=== PATIENT | male | born 1975 | race African-American/Black ===

== ENCOUNTER 2017-02-01 16:12 | Emergency (ER) | payer OTHER ==
[~2017-02-01] VITALS: Ht 177.8 cm; Wt 126.0 kg
[~2017-02-01 16:12] MED LIST: CALC500 PO
[2017-02-01 16:19] VITALS: BP 120/90; PULSE 71; RESP 16; TEMP 98.3; O2SAT 97
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
--- NOTE | 2017-02-01 17:47 | RADHPO ---
EXAM DATE/TIME: 02/01/2017 17:32 [facility] COMPARISON: No previous studies available for comparison. INDICATIONS : Right lower leg pain. Patient states his left calf hurts after stepping back wrong. MEDICAL HISTORY : None. SURGICAL HISTORY : None. ENCOUNTER: Initial ACUITY: 2 days PAIN SCORE: 7/10 LOCATION: Left lower leg. FINDINGS: Two view examination of the right tibia demonstrates no evidence of fracture or dislocation. Bony mi neralization is normal. The soft tissue structures are intact. CONCLUSION: Unremarkable examination of the right tibia. Yonny Araya Jr., MD on February 01, 2017 at 17:44 Board Certified Radiologist. This report was verified electronically.
[2017-02-01] MEDS ORDERED: IBUP-232 PO (17:56)
[2017-02-01 18:09] VITALS: BP 117/78
== END 2017-02-01 18:11 | disposition home or self-care (01) ==
LOC: PHEFT 16:12
DX: M79.661 Pain in right lower leg (principal); W01.0XXA Fall on same level from slipping, tripping and stumbling without subsequent striking against object, initial encounter
CPT/HCPCS: 73590; 99283

== ENCOUNTER 2018-01-10 14:13 | Emergency (ER) | payer OTHER ==
[~2018-01-10] VITALS: Ht 177.8 cm; Wt 126.4 kg
[~2018-01-10 14:13] MED LIST changes: -CALC500 PO; +IBUP-232 PO
[2018-01-10 14:49] VITALS: BP 132/80; PULSE 80; RESP 16; TEMP 98.6; O2SAT 98
[2018-01-10] MEDS ORDERED: AUGM875T3 PO (15:23)
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
== END 2018-01-10 15:48 | disposition home or self-care (01) ==
LOC: PHEFT 14:13
DX: M79.604 Pain in right leg (principal); S61.452A Open bite of left hand, initial encounter; W50.3XXA Accidental bite by another person, initial encounter
CPT/HCPCS: 99283